=== PATIENT | male | born 1945 | race Caucasian/White ===

== ENCOUNTER 2017-01-26 13:03 | Emergency (ER) | payer OTHER ==
[~2017-01-26] VITALS: Ht 175.3 cm; Wt 79.4 kg
[~2017-01-26 13:03] MED LIST: ALLOPURINOL100 MG PO; ASPIR 8181 MG PO; BENICAR HCT; BENICAR HCT1 TA1; CLOPIDOGREL75 M1 PO; DIVALPROEX SOD500 M2 PO; FENOFIBRATE MI134 MG PO; GENICIN500 MG PO; IMDUR30 MG PO; INVOKANA300 MG PO; ISOSORBIDE MONO30 MG; LANTUS SOLOS100 U/M1; LATANOPROST2.5 ML OU; MAGNESIUM OXID400 MG PO; POTASSIUM CHLO20 ME1 PO; SYNTHROID0.05 MG; SYNTHROID0.1 MG PO; TOPROL XL100 MG PO; VITAMIN-D1000 IU PO
[2017-01-26 17:37] VITALS: BP 193/96
== END 2017-01-26 17:37 | disposition home or self-care (01) ==
LOC: ED 13:03
DX: S01.111A Laceration without foreign body of right eyelid and periocular area, initial encounter (principal); I10 Essential (primary) hypertension; E11.9 Type 2 diabetes mellitus without complications; Z86.73 Personal history of transient ischemic attack (TIA), and cerebral infarction without residual deficits; Z86.79 Personal history of other diseases of the circulatory system; W01.0XXA Fall on same level from slipping, tripping and stumbling without subsequent striking against object, initial encounter; Y93.89 Activity, other specified; Y99.8 Other external cause status; Y92.89 Other specified places as the place of occurrence of the external cause